=== PATIENT | female | born 1985 | race Caucasian/White ===

== ENCOUNTER 2016-09-16 10:02 | Emergency (ER) | payer OTHER ==
[~2016-09-16] VITALS: Ht 152.4 cm; Wt 55.0 kg
[~2016-09-16 10:02] MED LIST: PRENMIS7 PO; ZOFR4TAB3 SL
[2016-09-16 11:14] VITALS: BP 116/57; PULSE 85; RESP 16; O2SAT 100
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
[2016-09-16 13:37] VITALS: BP 99/51; PULSE 70; RESP 16; O2SAT 100
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
[2016-12-13] MEDS ORDERED: FERRTAB2 PO (16:28)
[2017-02-16] MEDS ORDERED: DICL250 PO (10:27)
== END 2016-09-16 14:15 | disposition home or self-care (01) ==
LOC: NEPC 10:02
DX: Z03.79 Encounter for other suspected maternal and fetal conditions ruled out (principal); O09.892 Supervision of other high risk pregnancies, second trimester; O30.002 Twin pregnancy, unspecified number of placenta and unspecified number of amniotic sacs, second trimester; R51 Headache; Z3A.14 14 weeks gestation of pregnancy; V89.2XXA Person injured in unspecified motor-vehicle accident, traffic, initial encounter
CPT/HCPCS: 84703; 99283

== ENCOUNTER → 2016-09-20 | Outpatient (CLI) | payer MEDICAID, OTHER ==
[~2016-09-20] MED LIST changes: +DICL250 PO; +FERR324T4 PO; +FERRTAB2 PO; +IBUP-232 PO; +OXYC1TAB63 PO; +SENN1TAB PO
== END ==
LOC: HPND 09:20
PROVIDERS: ATTEND Obstetrics & Gynecology Obstetrics
DX: O30.001 Twin pregnancy, unspecified number of placenta and unspecified number of amniotic sacs, first trimester (principal); O43.891 Other placental disorders, first trimester
CPT/HCPCS: 76811; 76812; 76817

== ENCOUNTER → 2016-10-04 | Outpatient (CLI) | payer MEDICAID, OTHER ==
[~2016-10-04] MED LIST changes: -ZOFR4TAB3 SL
== END ==
LOC: HPND 09:00
PROVIDERS: ATTEND Obstetrics & Gynecology
DX: O30.032 Twin pregnancy, monochorionic/diamniotic, second trimester (principal); O43.192 Other malformation of placenta, second trimester; Z3A.18 18 weeks gestation of pregnancy
CPT/HCPCS: 76815; 76817

== ENCOUNTER → 2016-12-28 | Outpatient (CLI) | payer OTHER | LOC: HPND 09:14 | PROVIDERS: ATTEND Obstetrics & Gynecology | DX: O30.032 Twin pregnancy, monochorionic/diamniotic, second trimester (principal) | CPT/HCPCS: 76815; 76820 ==

== ENCOUNTER 2017-01-25 17:19 | Emergency (ER) | payer OTHER ==
[~2017-01-25 17:19] MED LIST changes: -DICL250 PO; -FERR324T4 PO; -IBUP-232 PO; -OXYC1TAB63 PO; -SENN1TAB PO
--- NOTE | 2017-01-25 18:31 | PD ---
HPI Chief Complaint Itching Travel History International Travel<30 Days: No Contact w/Intl Traveler<30Days: No Known Affected Area: No History of Present Illness HPI TIUP at 34w 6d presents with c/o itching in the palms earlier today. Reports taking Benadryl prior to arrival with relief now. Reports itching in the palms 3 days ago. Denies rashes or insect bites. Denies itching in any other areas. Reports good FM x 2. Denies contractions/LOF/VB. Reports being followed by MFM. Para: 3 : 7 History Past Medical History Medical History: Denies Significant Hx Obstetric History Obstetric History FT x 3 Past Surgical History Surgical History: No Previous Surgery Family History Family History: Negative Social History Alcohol Use: No Tobacco Use: No Substance Abuse: No Allergies-Medications (Allergen,Severity, Reaction): Coded Allergies: Cipro (Verified Allergy, Unknown, 12/22/16) Home Meds Active Scripts Multi-Vit/Iron-Folic Yzay-E59-Mnl C (Ferralet)90-1-0.012-120 mg Tab1 Tab PO DAILY #30 BOTTLE Ref 10 Prov:Aminata Alvarez [facility] 12/13/16 W/O Vit A W/ Fe Carbo Pack (Citranatal B-Calm Pack)20-1 & 25 (2) Mg Pack1 Ea PO DIRECTED #6 BLISTER Ref 11 30 day supply. Prov:Dolly Chavez CNM [facility] 08/11/16 W/O Vit A W/ Fe Fumar (Citranatal [place])27-1-260 Mg Cap Sample #2 Prov:Dolly Chavez CNM [facility] 08/11/16 Review of Systems Except as stated in HPI: all other systems reviewed are Neg Physical Exam AFVSS BP 114/66 Narrative GENERAL: Well-nourished, well-developed patient. SKIN: Warm and dry. HEAD: Normocephalic and atraumatic. EYES: No scleral icterus. No injection or drainage. ENT: No nasal drainage noted. Mucous membranes pink. Airway patent. NECK: Supple, trachea midline. No JVD. CARDIOVASCULAR: Regular rate and rhythm without murmurs, gallops, or rubs. RESPIRATORY: Breath sounds equal bilaterally. No accessory muscle use. BREASTS: Bilateral exam showed no masses , no retractions, no nipple discharge. ABDOMEN/GI: Abdomen soft, non-tender, bowel sounds present, no rebound, no guarding Gravid to [-] weeks size Fundal Height: [-] GENITOURINARY: External Genitalia: intact and normal in appearance BUS glands: [-] Cervix: [-] Dilatation: [FT] Effacement: [50] Station: [-3] Presentation: [-] Membranes: [intact or ruptured] Uterine Contractions: [occasional contractions] FHT's: Category: [1] Baseline: [150s/150s] Reactive: [yes] Variability: [moderate] Decels: [none] EXTREMITIES: No cyanosis or edema. BACK: Nontender without obvious deformity. No CVA tenderness. NEUROLOGICAL: Awake and alert. Motor and sensory grossly within normal limits. Five out of 5 muscle strength in all muscle groups. Normal speech. Data Data Vital Signs Reviewed: Yes Labs Laboratory Tests Test 01/25/17 01/25/17 19:00 19:15 Urine Color YELLOW Urine Turbidity CLEAR Urine pH 6.5 Urine Specific [place] 1.025 Urine Protein TRACE mg/dL Urine Glucose (UA) NEG mg/dL Urine Ketones NEG mg/dL Urine Occult Blood NEG Urine Nitrite NEG Urine Bilirubin NEG Urine Urobilinogen 4.0 MG/DL Urine Leukocyte Esterase NEG Urine RBC 1 /hpf Urine WBC 1 /hpf Urine Squamous Epithelial 1 /hpf Cells Urine Mucus FEW /lpf Microscopic Urinalysis Comment CULT NOT INDICATED White Blood Count 7.8 TH/MM3 Red Blood Count 4.20 MIL/MM3 Hemoglobin 10.0 GM/DL Hematocrit 30.9 % Mean Corpuscular Volume 73.7 FL Mean Corpuscular Hemoglobin 23.8 PG Mean Corpuscular Hemoglobin 32.3 % Concent Red Cell Distribution Width 24.5 % Platelet Count 204 TH/MM3 Mean Platelet Volume 8.1 FL Neutrophils (%) (Auto) 72.7 % Lymphocytes (%) (Auto) 18.8 % Monocytes (%) (Auto) 6.4 % Eosinophils (%) (Auto) 1.7 % Basophils (%) (Auto) 0.4 % Neutrophils # (Auto) 5.7 TH/MM3 Lymphocytes # (Auto) 1.5 TH/MM3 Monocytes # (Auto) 0.5 TH/MM3 Eosinophils # (Auto) 0.1 TH/MM3 Basophils # (Auto) 0.0 TH/MM3 CBC Comment DIFF FINAL Differential Comment Sodium Level 138 MEQ/L Potassium Level 3.9 MEQ/L Chloride Level 106 MEQ/L Carbon Dioxide Level 22.0 MEQ/L Anion Gap 10 MEQ/L Blood Urea Nitrogen 6 MG/DL Creatinine 0.57 MG/DL Estimat Glomerular Filtration 125 ML/MIN Rate Random Glucose 92 MG/DL Calcium Level 8.0 MG/DL Total Bilirubin 0.3 MG/DL Aspartate Amino Transf 19 U/L (AST/SGOT) Alanine Aminotransferase 30 U/L (ALT/SGPT) Alkaline Phosphatase 191 U/L Total Protein 6.5 GM/DL Albumin 2.3 GM/DL MDM Interpretation(s) TIUP at 34w 6d with itching and irregular contractions. Continue Benadryl if itching returns. Hydration and OTC therapies d/w patient. Close f/u tomorrow with OB provider. Patient requesting labs. CBC and CMP. Total bile acid levels- fasting lab, patient to f/u with OB provider tomorrow. Diagnosis Diagnosis: Primary Impression: 34 weeks gestation of Additional Impressions: Localized pruritus Irregular uterine contractions Twin in third trimester Disposition: 01 DISCHARGE HOME Condition: Stable Melissa Obrien MD Jan 25, 2017 18:31
[2017-01-25 19:45] LABS: AUTOMATED NEUTROPHIL # 5.7 TH/MM3 (1.8-7.7); BASOPHIL % 0.4 % (0.0-2.0); EOSINOPHIL # 0.1 TH/MM3 (0-0.4); EOSINOPHIL % 1.7 % (0.0-4.0); HEMATOCRIT 30.9 % (35.0-46.0); HEMO FLAGS DIFF FINAL; LYMPH % 18.8 % (9.0-44.0); LYMPHOCYTE # 1.5 TH/MM3 (1.0-4.8); MEAN CELL VOLUME 73.7 FL (80.0-100.0); MEAN CORPUSCULAR HEMOGLOBIN 23.8 PG (27.0-34.0); MEAN CORPUSCULAR HGB CONC 32.3 % (32.0-36.0); MONO % 6.4 % (0.0-8.0); NEUT % 72.7 % (16.0-70.0); PLATELET COUNT 204 TH/MM3 (150-450); RED CELL DISTRIBUTION WIDTH 24.5 % (11.6-17.2); WHITE BLOOD COUNT 7.8 TH/MM3 (4.0-11.0)
[2017-01-25 19:49] LABS: BLOOD, URINE NEG (NEG); COMMENT (UR) CULT NOT INDICATED; CULTURE IF INDICATED CULT NOT INDICATED; GLUCOSE,URINE NEG (NEG); KETONE, URINE NEG (NEG); MUCUS URINE FEW /lpf (OCC); NITRITE,URINE NEG (NEG); PH, URINE 6.5 (5.0-8.5); SQUAMOUS EPITHELIAL CELL URINE 1 /hpf (0-5); URINE COLOR YELLOW (YELLW/STRAW)
[2017-01-25 20:03] LABS: ANION GAP 10 MEQ/L (5-15); AST (GOT) 19 U/L (15-37); BLOOD UREA NITROGEN 6 MG/DL (7-18); CHLORIDE 106 MEQ/L (98-107); GLOMERULAR FILTRATION RATE 125 ML/MIN (>89); POTASSIUM 3.9 MEQ/L (3.5-5.1); SODIUM (NA) 138 MEQ/L (136-145)
[2017-01-25 20:07] LABS: ALKALINE PHOSPHATASE 191 U/L (45-117); ALT (GPT) 30 U/L (10-53); TOTAL BILIRUBIN ADULT 0.3 MG/DL (0.2-1.0)
[2017-02-16] MEDS ORDERED: DICL250 PO (10:27)
== END 2017-01-25 21:16 | disposition home or self-care (01) ==
LOC: HOBED 17:19
DX: O62.2 Other uterine inertia (principal); O30.003 Twin pregnancy, unspecified number of placenta and unspecified number of amniotic sacs, third trimester; L29.8 Other pruritus; Z3A.34 34 weeks gestation of pregnancy
CPT/HCPCS: 80053; 81001; 85025; 99283

== ENCOUNTER 2017-02-02 08:19 | Inpatient (IN) | payer OTHER ==
[~2017-02-02] VITALS: Ht 154.9 cm; Wt 63.5 kg
[2017-02-02] VITALS (64 sets, daily range): BP systolic 91–125; BP diastolic 48–81; PULSE 59–99; RESP 16–18; TEMP 97.6–98.4
[2017-02-02] MEDS ORDERED: ONDANSETRON HCL 4 MG/2 ML VIAL IV PRN (08:30)
[2017-02-02] MEDS ORDERED: SODIUM CHLORID 0.9% 500 ML INJ 500 ML IV PRN (08:30)
[2017-02-02] MEDS ORDERED: LIDOCAINE HCL 1% 50 ML VIAL INFIL PRN (08:30)
[2017-02-02] MEDS ORDERED: MINERAL OIL 10 ML VIAL TOPICAL PRN (08:30)
[2017-02-02] MEDS ORDERED: LIDOCAINE HCL 1% 50 ML VIAL I-DERMAL PRN (08:30)
[2017-02-02] MEDS ORDERED: OXYTOCIN 30 UNITS-500ML PREMIX 500 ML IV ONE (08:30)
[2017-02-02] MEDS ORDERED: CITRIC ACID-SODIUM CITRATE LIQ 30 ML UDC PO SCH (08:30)
[2017-02-02] MEDS ORDERED: SODIUM CHLOR 0.9% 1000 ML INJ 1,000 ML IV PRN (08:49)
[2017-02-02] MEDS ORDERED: LACTATED RINGER'S 1000 ML INJ 1,000 ML IV PRN (09:00)
--- NOTE | 2017-02-02 09:08 | HHI.HP ---
HPI Chief Complaint induction of labor, mono/di twin gestation Date Seen: Feb 02, 2017 Time Seen: 09:04 (Ivone Galeano MD R1) Travel History International Travel<30 Days: No Contact w/Intl Traveler<30Days: No Known Affected Area: No (Ivone Galeano MD R1) History of Present Illness HPI Patient is a 31 year old at 36 and 0/7 weeks of monochorionic/ diamniotic twin gestation by first trimester ultrasound, MARITZA 03/02/2017, who presents to L&D for induction of labor. She states she was feeling contractions yesterday and has pelvic pressure. She denies leakage of fluid and vaginal bleeding. She feels babies moving regularly. She denies MCMAHON/N/V/D/fever/sick contacts/SOB/calf pain/dizziness/seeing spots. OB care is with [facility]. LITZY 2016. Patient is noted to have a subchorionic bleed at approximately 11 weeks gestation, at which time she was referred to [facility] [place]. She has been getting twice weekly assessments in the third trimester. [facility] [place] has recommended delivery at 36 weeks due to IUGR in Twin A per [facility] documentation. records reviewed, course has been unremarkable side from above. labs notable for HIV negative, TSH within normal limits, blood type A positive, normal H/H, rubella not immune, negative GC/Chlamydia. She had an US 01/31/2017, notable for fetus A cephalic, JED 5.5 cm, EFW 2010 g, IUGR at <3%ile. Fetus B cephalic, JED 5.5 cm, EFW 2215 g, AGA. Grade 12 placenta, posterior. Para: 3 : 7 Last Menstrual Period: Jun 04, 2016 (Ivone Galeano MD R1) History Past Medical History Medical History: Denies Significant Hx (Ivone Galeano MD R1) Obstetric History Obstetric History 3 term pregnancies, 2003 was of 7lb female at term, 2007 was of 6rk81dn male at term, 2008 was of 7lb5oz male at term Induced AB 2 SAB 1 (Ivone Galeano MD R1) Past Surgical History Surgical History: No Previous Surgery (Ivone Galeano MD R1) Family History Family History: Negative (Ivone Galeano MD R1) Social History Alcohol Use: No Tobacco Use: No Substance Abuse: No (Ivone Galeano MD R1) Allergies-Medications (Allergen,Severity, Reaction): Coded Allergies: Cipro (Verified Allergy, Unknown, 01/30/17) Home Meds Active Scripts Ferrous Sulfate DR 324 Mg [id number] Mg PO TID #90 TAB Ref 0 Prov:Gogo Enciso MD R2 02/05/17 Sennosides-Docusate Sodium (Senna Plus 8.6-50 mg)1 Tab Tab2 Tab PO Q12H PRN ( CONSTIPATION) #60 TAB Prov:Gogo Enciso MD R2 02/05/17 Oxycodone-Acetaminophen 5-325 mg Tab1 Tab PO Q6HR PRN (pain) #20 TAB Prov:Gogo Enciso MD R2 02/05/17 Ibuprofen 600 Mg [id number] Mg PO Q6H PRN ( CRAMPING) #30 TAB Prov:Gogo Enciso MD R2 02/05/17 Multi-Vit/Iron-Folic Ndst-Z11-Mol C (Ferralet)90-1-0.012-120 mg Tab1 Tab PO DAILY #30 BOTTLE Ref 10 Prov:Aminata Alvarez 12/13/16 W/O Vit A W/ Fe Carbo Pack (Citranatal B-Calm Pack)20-1 & 25 (2) Mg Pack1 Ea PO DIRECTED #6 BLISTER Ref 11 30 day supply. Prov:Dolly Chavez CNM [facility] 08/11/16 Discontinued Scripts W/O Vit A W/ Fe Fumar (Citranatal [place])27-1-260 Mg Cap Sample #2 Prov:Dolly Chavez CNM [facility] 08/11/16 Review of Systems Except as stated in HPI: all other systems reviewed are Neg (Ivone Galeano MD R1) Physical Exam Vital Signs Date Time Temp Pulse Resp B/P Pulse Ox O2 Delivery O2 Flow Rate FiO2 02/02/17 08:52 72 118/68 Narrative GENERAL: Well-nourished, well-developed female in no apparent distress. SKIN: Warm and dry. No rashes. HEAD: Normocephalic and atraumatic. EYES: No scleral icterus. No injection or drainage. ENT: No nasal drainage noted. Mucous membranes pink. Airway patent. NECK: Supple, trachea midline. No JVD. CARDIOVASCULAR: Regular rate and rhythm without murmurs, gallops, or rubs. RESPIRATORY: Breath sounds equal bilaterally. No accessory muscle use. ABDOMEN/GI: Abdomen soft, non-tender, bowel sounds present, no rebound, no guarding. Gravid GENITOURINARY: External Genitalia: intact and normal in appearance Cervix: Soft, posterior, 3/50%/-2 Presentation: Vertex 2 Membranes: Intact Uterine Contractions: 1 over initial FHT's: Twin A, red on tracing: Category: 1 Baseline: 140 Reactive: y to 150 Variability: mod Decels: Absent Twin B, blue on tracing: Category: 1 Baseline: 140 Reactive: y to 150 Variability: mod Decels: Absent EXTREMITIES: No cyanosis or edema. BACK: Nontender without obvious deformity. No CVA tenderness. NEUROLOGICAL: Awake and alert. Motor and sensory grossly within normal limits. Five out of 5 muscle strength in all muscle groups. Normal speech. (Ivone Galeano MD R1) Data Data Vital Signs Reviewed: Yes (BP 118/68, P 72, RR 18) Orders Admit To Inpatient (02/02/17 ) Code Status (02/02/17 08:29) Vital Signs (Adult) .Per protocol (02/02/17 08:29) Activity Oob Ad Traci (02/02/17 08:29) Heart (02/02/17 08:29) Amnioinfusion (02/02/17 08:29) Urinary Catheter Management .ONCE (02/02/17 08:29) Diet Liquid (02/02/17 Breakfast) Lactated Ringer's 1000 Ml Inj (Lr 1000 M (02/02/17 08:29) Lactated Ringer's 1000 Ml Inj (Lr 1000 M (02/02/17 09:00) Sodium Chlorid 0.9% 500 Ml Inj (Ns 500 M (02/02/17 08:30) Sodium Chlor 0.9% 1000 Ml Inj (Ns 1000 M (02/02/17 08:49) Lidocaine 1% Inj (50 Ml) (Xylocaine 1% I (02/02/17 08:30) Citric Acid-Sodium Citrate Liq (Bicitra (02/02/17 08:30) Ondansetron Inj (Zofran Inj) (02/02/17 08:30) Fentanyl Inj (Fentanyl Inj) (02/02/17 08:30) Fentanyl Inj (Fentanyl Inj) (02/02/17 08:30) Complete Blood Count With Diff (02/02/17 08:29) Hold Clot (02/02/17 08:29) Abo/Rh Blood Type (02/02/17 08:29) Urinalysis - C+S If Indicated (02/02/17 08:29) Resp Oxygen Non Rebreathe Mask (02/02/17 ) ^ Epidural / Intrathecal Infus (02/02/17 08:29) Oxytocin 30 Units-500ml Premix (Pitocin (02/02/17 08:30) Lidocaine 1% Inj (50 Ml) (Xylocaine 1% I (02/02/17 08:30) Light Mineral Oil (Muri-Lube Oil) (02/02/17 08:30) Inpatient Certification (02/02/17 ) Specimen To Be Collected PRN (02/02/17 08:29) (Ivone Galeano MD R1) Assessment/Plan Problem List: (1) Twin in third trimester (2) IUGR (intrauterine growth retardation) of Assessment and Plan 31 year old at 36 and 0/7 weeks of monochorionic/diamniotic twin gestation admitted for IOL. Intrauterine with [place]/Di twin gestation: Fetus A: category 1 tracing Fetus B: category 1 tracing Cervix: 3/40%/-2/posterior/soft, Wilkinson score is 8 Will induce with Pitocin at 2/2/30 per protocol Patient desires vaginal delivery Intact membranes Epidural for pain CBC, UA IV fluids Monitor heart tones Routine care Per [facility], steroids not indicated Both infants female, names of the Rosa and Mohinder GBS positive: GBS culture was collected on 01/26/17 Start IV penicillin per protocol due to gestational age Patient was seen and discussed with Dr. Rojas PGY2 and Dr. Andres, attending Discharge Planning If vaginal delivery, 12 days after delivery. If section, 23 days after delivery (Ivone Galeano MD R1) Collaborating MD Comments Patient seen and examined. Reviewed plan of care and agree with management. ( Mandi Andres MD) Ivone Galeano MD R1 Feb 02, 2017 09:08 Mandi Andres MD Feb 07, 2017 08:27
[2017-02-02] MEDS ORDERED: OXYTOCIN 30 UNITS-500ML PREMIX 500 ML IV SCH ×2 (09:15→10:15)
[2017-02-02 09:34] LABS: HEMATOCRIT 34.2 % (35.0-46.0); MEAN CELL VOLUME 74.8 FL (80.0-100.0); MEAN CORPUSCULAR HEMOGLOBIN 23.4 PG (27.0-34.0); MEAN CORPUSCULAR HGB CONC 31.3 % (32.0-36.0); PLATELET COUNT 222 TH/MM3 (150-450); RED BLOOD COUNT 4.57 MIL/MM3 (4.00-5.30); RED CELL DISTRIBUTION WIDTH 24.2 % (11.6-17.2); WHITE BLOOD COUNT 8.9 TH/MM3 (4.0-11.0)
[2017-02-02 09:41] LABS: HEMO FLAGS AUTO DIFF
[2017-02-02] MEDS ORDERED: PENICILLIN G POTASSIUM INJ 5,000,000 UNITS in SODIUM CHLORIDE 0.9% INJ 100 ML IV ONE (10:00)
[2017-02-02 10:12] LABS: EOSINOPHILS 1 % (0-4); NEUTROPHIL # MANUAL DIFF 5.9 TH/MM3 (1.8-7.7); POLYS (SEG NEUTROPHILS) 66 % (16-70); WBC DIFF SAMPLE 100
[2017-02-02 10:13] LABS: PLATELET ESTIMATE SMEAR NORMAL (NORMAL); PLATELET MORPHOLOGY NORMAL (NORMAL); SCAN/DIFF FINAL DIFF MANUAL
[2017-02-02 10:14] LABS: OVALOCYTES 1+ (NORMAL)
[2017-02-02] MEDS: LACTATED RINGER'S 1000 ML INJ 1,000 ML IV SCH ×3 (10:16→21:01)
--- NOTE | 2017-02-02 10:29 | PD.LABORPN ---
Subjective Subjective Changing shifts Dr. Del Angel coming on duty. Chart reviewed This patient is a 31-year-old 7 para 3 at 36 weeks gestation with mono chorionic diamniotic twin gestation, with the diagnosis of IUGR she is admitted for induction of labor on the recommendation of maternal medicine [facility] Ultrasound done February 01, 2080 is vertex at approximately weight 2010 g less than the 3% Twin B also vertex 20/2/15 grams AGA Patient has no complaints at this point she is GBS positive Objective Vital Signs Vital Signs Date Time Temp Pulse Resp B/P Pulse Ox O2 Delivery O2 Flow Rate FiO2 02/02/17 09:30 98.3 02/02/17 09:00 18 02/02/17 08:52 72 118/68 Objective Pelvic Exam: Cervix: [-] Midline soft Dilatation: [-] 3 cm Effacement: [-] 50% effaced Station: [-] -2 station Presentation: [-] Vertex/vertex Membranes: [intact Uterine Contractions: [-] Occasional FHT's: Category: [-] / Baseline: [-]140/140 Reactive: [-] +/+ Variability: [-] Moderate/moderate Decels: [-] 0 Assessment/Plan Problem List: (1) Twin in third trimester (2) IUGR (intrauterine growth retardation) of Assessment and Plan Assessment: Intrauterine at 36 weeks gestation [place] chorionic diamniotic twin gestation IUGR in the first twin at less than the 3rd percentile Vertex vertex presentation Group B strep positive A positive blood type Stable blood pressure Plan; External monitoring Pitocin augmentation of labor Anticipate vaginal delivery The procedure of vaginal delivery was fully discussed with the patient and the baby's father she understands that delivery will be done in the operating room. She understands that we will attempt a vaginal delivery as both babies are vertex vertex and that is her request. She also understands that if there are any problems with either baby tolerating the labor process that a section will be recommended. She also understands if the second twin has any difficulty during the delivery process and the operating room that although the first baby came out vaginally the second baby may require a section Procedure indications and complications discussed with the patient She does desire an epidural Penicillin coverage for group B strep Pitocin at 1 milliunit every 30 minutes until patient den every 2-3 minutes Complications of Pitocin also discussed Robina Luna MD Feb 02, 2017 10:29
[2017-02-02] MEDS ORDERED: fentaNYL 2MCG-BUPIV 0.125% INJ 100 ML ONE (13:30)
[2017-02-02] MEDS ORDERED: ePHEDrine/NS 25 MG/5 ML SYR ONE (13:30)
--- NOTE | 2017-02-02 13:39 | PD.LABORPN ---
Subjective Subjective Patient starting to feel her contractions has decided she wants an epidural Objective Vital Signs Vital Signs Date Time Temp Pulse Resp B/P Pulse Ox O2 Delivery O2 Flow Rate FiO2 02/02/17 13:00 88 113/68 02/02/17 12:33 17 02/02/17 12:30 91 113/70 02/02/17 12:15 17 02/02/17 12:01 86 98/64 02/02/17 11:35 17 02/02/17 11:30 80 110/74 02/02/17 11:15 18 02/02/17 11:01 75 119/70 02/02/17 10:35 83 112/61 02/02/17 09:30 98.3 02/02/17 09:00 18 02/02/17 08:52 72 118/68 Objective Pelvic Exam: Cervix: [-] Midline Dilatation: [-] 3-4 cm Effacement: [-] 50-75% effaced Station: [-] -2-3 Presentation: [-] First twin is vertex Membranes: [intact Uterine Contractions: [-] Every 3 minutes Pitocin at 4 milliunits FHT's: Both twins are category 1 tracing Assessment/Plan Problem List: (1) Twin in third trimester (2) IUGR (intrauterine growth retardation) of Assessment and Plan Twin gestation at 36 weeks Induction of labor for twin A's IUGR Plan epidural Robina Luna MD Feb 02, 2017 13:39
[2017-02-02 13:42] LABS: BLOOD, URINE NEG (NEG); COMMENT (UR) CULT NOT INDICATED; CULTURE IF INDICATED CULT NOT INDICATED; GLUCOSE,URINE NEG (NEG); KETONE, URINE NEG (NEG); NITRITE,URINE NEG (NEG); PH, URINE 6.5 (5.0-8.5); SQUAMOUS EPITHELIAL CELL URINE <1 /hpf (0-5); URINE COLOR LIGHT-YELLOW (YELLW/STRAW)
[2017-02-02] MEDS: PENICILLIN G POTASSIUM INJ 2,500,000 UNITS in SODIUM CHLORIDE 0.9% INJ 100 ML IV SCH ×3 (14:40→22:19)
[2017-02-02] MEDS ORDERED: ePHEDrine/NS 25 MG/5 ML SYR IV PRN (15:00)
[2017-02-02] MEDS ORDERED: fentaNYL 2MCG-BUPIV 0.125% 100 ML EPIDURAL SCH (15:00)
[2017-02-02] MEDS ORDERED: NO SYSTEM NARCOTICS PRN (15:00)
[2017-02-02] MEDS ORDERED: DO NOT ADMINISTER ANTICOAGULANTS PRN (15:00)
--- NOTE | 2017-02-02 21:18 | PD.LABORPN ---
Subjective Subjective Patient is comfortable Objective Vital Signs Vital Signs Date Time Temp Pulse Resp B/P Pulse Ox O2 Delivery O2 Flow Rate FiO2 02/02/17 21:06 18 02/02/17 21:00 18 02/02/17 21:00 83 107/66 02/02/17 20:45 18 02/02/17 20:30 75 02/02/17 20:30 96/61 02/02/17 20:13 18 02/02/17 20:00 68 112/71 02/02/17 19:35 97.8 02/02/17 19:30 60 118/68 02/02/17 19:15 18 02/02/17 19:00 59 113/70 02/02/17 18:30 62 108/68 02/02/17 18:15 97.6 17 02/02/17 18:01 71 103/67 02/02/17 17:46 63 115/71 02/02/17 17:30 67 110/81 02/02/17 17:08 17 02/02/17 17:00 69 105/68 02/02/17 16:45 60 114/65 02/02/17 16:15 65 105/78 02/02/17 16:15 18 02/02/17 16:00 62 110/70 02/02/17 15:45 17 02/02/17 15:30 109/64 02/02/17 15:30 64 02/02/17 15:16 73 105/61 02/02/17 15:00 70 111/66 02/02/17 14:46 59 115/65 02/02/17 14:45 97.8 02/02/17 14:45 18 02/02/17 14:41 61 124/60 02/02/17 14:35 71 111/71 02/02/17 14:30 69 107/62 02/02/17 14:27 75 97/59 02/02/17 14:21 73 115/48 02/02/17 14:15 85 92/51 02/02/17 14:10 81 111/71 02/02/17 14:05 78 108/66 02/02/17 14:00 80 18 101/50 02/02/17 13:57 80 110/61 02/02/17 13:56 99 91/50 02/02/17 13:55 83 02/02/17 13:50 83 125/76 02/02/17 13:50 89 02/02/17 13:45 73 02/02/17 13:45 80 116/63 02/02/17 13:44 78 112/62 02/02/17 13:30 86 99/61 02/02/17 13:30 18 Objective Pelvic Exam: Cervix: [-]midline Dilatation: [-] 5 Effacement: [-] 75% Station: [-] -2 Presentation: [-]vtx/vtx Membranes: ruptured]arom fluid is clear Uterine Contractions: [-]q 3-4 pitocin at 10 FHT's: Category: [-] 08/21 Baseline: [-] 130 Reactive: [-]+ Variability: [-] moderate Decels: [-] Assessment/Plan Problem List: (1) Twin in third trimester (2) IUGR (intrauterine growth retardation) of Assessment and Plan arom clear anticipate Robina Luna MD Feb 02, 2017 21:18
[2017-02-03] VITALS (23 sets, daily range): BP systolic 85–118; BP diastolic 50–78; PULSE 67–98; RESP 16–20; TEMP 97.8–98.4; O2SAT 99–100
[2017-02-03] MEDS ORDERED: LIDOCAINE HCL 1% 50 ML VIAL ONE (02:54)
[2017-02-03] MEDS ORDERED: OXYTOCIN 10 UNIT/ML AMP ONE (04:02)
[2017-02-03] MEDS ORDERED: ceFAZolin INJ 1,000 MG VIAL ONE (04:24)
[2017-02-03 04:31] LABS: BLOOD GAS BASE EXCESS -7.2 mmol/L (-2-2); BLOOD GAS O2 HGB SATURATION 36 % (90-100); CORD BLOOD GAS HCO3 19 mmol/L (21-29); CORD BLOOD GAS PCO2 46 mmHG (34-78); CORD BLOOD GAS PH 7.24 (7.14-7.42); CORD BLOOD GAS PO2 21 mmHG (3.0-40.0); DRAW SITE CORD BLOOD; STAT YES
--- NOTE | 2017-02-03 04:44 | PD.OB.DELI ---
Delivery Date: Feb 03, 2017 Anesthesia: Epidural Episiotomy: None Vaginal Delivery: Normal (Twin A, Twin B delivered via ) Presentation: Occiput anterior Nuchal Cord: x1 Delayed cord clamping (45 sec): Yes : Female (Twin A) One Minute : 8 Five Minute : 9 Weight: 2150g Placenta: Manual removal (During of Twin B, manual removal, monochorionic diamniotic twin gestation), 3 vessel cord Laceration: No lacerations Additional Information Delivered atraumatically over intact perineum. EBL 250cc. Supervised by Lucinda Angelo MD R2 Feb 03, 2017 04:44
[2017-02-03] MEDS ORDERED: oxyCODONE/ACETAMINOPHEN 5 MG/325 MG TAB PO PRN (04:45)
[2017-02-03] MEDS ORDERED: ZOLPIDEM TARTRATE 5 MG TAB PO PRN (04:45)
[2017-02-03] MEDS ORDERED: SODIUM CHLORIDE 0.9% FLUSH 10 ML FLUSH IV FLUSH PRN (04:45)
[2017-02-03] MEDS ORDERED: KETOROLAC TROMETHAMINE 60 MG/2 ML (IM) VIAL IM PRN (04:45)
[2017-02-03] MEDS ORDERED: OXYTOCIN 30 UNITS-500ML PREMIX 500 ML IV ONE (04:45)
[2017-02-03] MEDS ORDERED: ACETAMINOPHEN 325 MG TAB PO PRN (04:45)
[2017-02-03] MEDS ORDERED: ONDANSETRON HCL 4 MG/2 ML VIAL IV PUSH PRN (04:45)
[2017-02-03] MEDS ORDERED: ACETAMINOPHEN 1000 MG/100 ML VIAL IV ONE (04:54)
--- NOTE | 2017-02-03 05:01 | PD.OP ---
Operative Report Date of Surgery: Feb 03, 2017 Preoperative Diagnosis: 36 weeks 6 days twin gestation monochorionic diamniotic IUGR Postoperative Diagnosis: Same with asynclitic vertex on twin B Failed vacuum Procedure: Primary low segment transverse section Anesthesia: Epidural Surgeon: Robina Del Angel One Piece Expansion Maker Hand(s): Dr. Jose gupta Resident Surgeon: dr Rojas Operation and Findings: This 31-year-old 7 para 5 with monoamniotic dichorionic twin gestation being induced for IUGR .she progressed to completely dilated completely effaced with the twin a vertex at a 0 station. she was taken back to the operating room where under a double set up she delivered twin A at 3:10 female weight 20/1/50 grams with Apgars of 8 at 1 minute and 9 at 5 minutes over an intact perineum. Baby A's cord was then clamped, we awaited resumption of the contractions. she was augmented with Pitocin starting at 2 milliunits eventually increased to 6 milliunits contractions far and in between twin B was at a -3 station with membranes bulging she pushed the baby down to a -2 to -1 position. Membranes were needled clear fluid, however upon rupture of the membranes examination revealed the baby's vertex to be asynclitic. attempts were made to place a flat Kiwi vacuum on the vertex however due to swelling within the vagina and swelling of the cervix we were never able to get the vacuum placed adequately. A second opinion was obtained from Dr. Jose gupta he examined the patient and agreed with the Mal presentation. An attempt was made to place a flexible mushroom vacuum at the flexion point however due to the position and swelling with the Cord of the first baby coming through the os it was difficult to find adequate placement and the vacuum was abandoned. Dr. gupta agreed that due to the asynclitic nature of the vertex of twin B that vaginal delivery could not be accomplished heart rates were stable in the 130s 140s with variable decelerations it was then decided to proceed with C- section for the second twin. Anesthesiologist:: ( Gonzalez Manzo) Estimated blood loss: (700 cc ) Sponge and instrument count: (Correct ) Drains: (None ) Complications: (None ) Indications for procedure: (Mal presentation of twin B ) Findings: (Twin B born at 4:08 AM female weight 2090 g with Apgars of 1 at 8 minutes 9 at 5 minutes cord pH of 7.24 ) Timeout done After delivery of twin A with subsequent failure of the vacuum due to Mal presentation twin B was converted to a A [place] catheter was inserted under sterile conditions and draining adequate clear urine. Intermittent compression hoses were placed and functioning. Bovie pad was placed and grounded. The abdomen was shaved prepped and draped in the usual sterile fashion. A transverse Pfannenstiel incision was made carried down through the skin subcutaneous tissue. The fascia was opened transversely. from the muscles in the midline. The rectus muscles were . Peritoneal cavity opened and the abdominal cavity entered. The bladder flap was taken down transversely and a low segment transverse incision made into the lower uterine segment. The fluid was (clear ). The infant was vertex/asynclitic nuchal cord 1. The vertex was delivered nose and mouth suctioned well the remainder of the body was then delivered. Cord doubly clamped and cut and the handed over to the awaiting nursing staff. A portion of cord was obtained for cord pH The placenta was manually removed delivered intact with fundal massage. Sent to pathology The uterus was then exteriorized cleaned of excessive blood and debris. The incision was then closed with 0 chromic in a continuous interlocking stitch. The stitch line was imbricated also using 0 chromic. No active bleeding. Tubes and ovaries were inspected and found to be normal. The abdominal cavity was then irrigated. The uterus placed back into the abdomen. Paracolic gutters cleaned of excessive blood and debris. Interceed was then placed over the incision and the anterior surface of the uterus in an inverted T. The peritoneum was then closed with 2-0 Vicryl. The muscles reapproximated. Inspection of the muscle bed demonstrated no bleeding. Intercede placed over the muscle at the midline. The fascia was then closed with 0 Vicryl in a continuous stitch. The subcutaneous tissue was irrigated bleeders controlled with Bovie. Luis Fernando's fascia closed with 2-0 Vicryl. The skin was closed using ( rebeca). The uterus was massaged clearing blood and clots. The patient was cleaned. Pressure dressing and abdominal binder placed. Patient then transferred to the recovery room in stable condition, where her vital signs are ( stable). Urine is clear and adequate. Baby transferred to the nursery in stable condition. Robina Luna MD Feb 03, 2017 05:01
[2017-02-03] MEDS ORDERED: ONDANSETRON HCL 4 MG/2 ML VIAL ONE (05:02)
[2017-02-03] MEDS ORDERED: MORPHINE SULFATE PF 5 MG/10 ML VIAL ONE (05:02)
[2017-02-03] MEDS ORDERED: EPIDURAL-DIPHENHYDRAMINE HCL 50 MG CAP PO PRN (07:00)
[2017-02-03] MEDS ORDERED: EPIDURAL-NO SYSTEMIC NARCOTICS PRN (07:00)
[2017-02-03] MEDS ORDERED: EPIDURAL-DO NOT ADMINISTER ANTICOAGULANTS PRN (07:00)
[2017-02-03] MEDS ORDERED: EPIDURAL-DIPHENHYDRAMINE HCL 50 MG/ML VIAL IV PUSH PRN (07:00)
[2017-02-03] MEDS ORDERED: EPIDURAL-NALOXONE HCL 0.4 MG/ML AMP IV PRN (07:00)
[2017-02-03] MEDS ORDERED: SODIUM CHLORIDE 0.9% FLUSH 10 ML FLUSH IV FLUSH SCH (09:00)
[2017-02-03] MEDS ORDERED: PROCHLORPERAZINE INJ 10 MG/2 ML VIAL IM ONE (09:00)
[2017-02-03] MEDS ORDERED: LACTATED RINGER'S 1000 ML INJ 1,000 ML IV SCH (09:40)
[2017-02-03 11:52] LABS: BASOPHIL # 0.1 TH/MM3 (0-0.2); BASOPHIL % 0.4 % (0.0-2.0); HEMATOCRIT 28.1 % (35.0-46.0); HEMO FLAGS DIFF FINAL; LYMPH % 4.4 % (9.0-44.0); LYMPHOCYTE # 0.9 TH/MM3 (1.0-4.8); MEAN CELL VOLUME 75.1 FL (80.0-100.0); MEAN CORPUSCULAR HEMOGLOBIN 24.1 PG (27.0-34.0); MEAN CORPUSCULAR HGB CONC 32.1 % (32.0-36.0); MONO % 3.9 % (0.0-8.0); NEUT % 91.3 % (16.0-70.0); PLATELET COUNT 188 TH/MM3 (150-450); RED BLOOD COUNT 3.74 MIL/MM3 (4.00-5.30); RED CELL DISTRIBUTION WIDTH 24.1 % (11.6-17.2); WHITE BLOOD COUNT 19.7 TH/MM3 (4.0-11.0)
[2017-02-03] MEDS ORDERED: ACETAMINOPHEN 1000 MG/100 ML VIAL IV SCH (13:00)
[2017-02-03] MEDS ORDERED: OXYTOCIN 30 UNITS-500ML PREMIX 500 ML IV PRN (14:45)
[2017-02-03] MEDS: IBUPROFEN 600 MG TAB PO PRN (22:54)
[2017-02-03] MEDS: DOCUSATE SODIUM 50 MG/SENNA 8.6 MG TAB PO PRN (22:55)
[2017-02-04 06:56] LABS: AUTOMATED NEUTROPHIL # 11.1 TH/MM3 (1.8-7.7); BASOPHIL % 0.2 % (0.0-2.0); EOSINOPHIL # 0.1 TH/MM3 (0-0.4); LYMPH % 13.4 % (9.0-44.0); LYMPHOCYTE # 1.9 TH/MM3 (1.0-4.8); MEAN CELL VOLUME 75.6 FL (80.0-100.0); MEAN CORPUSCULAR HEMOGLOBIN 23.8 PG (27.0-34.0); MEAN CORPUSCULAR HGB CONC 31.5 % (32.0-36.0); MONO % 5.8 % (0.0-8.0); NEUT % 79.6 % (16.0-70.0); PLATELET COUNT 179 TH/MM3 (150-450); RED BLOOD COUNT 2.94 MIL/MM3 (4.00-5.30); RED CELL DISTRIBUTION WIDTH 24.5 % (11.6-17.2); WHITE BLOOD COUNT 13.9 TH/MM3 (4.0-11.0)
[2017-02-04 07:03] LABS: HEMO FLAGS AUTO DIFF
[2017-02-04 07:05] LABS: HEMATOCRIT 22.2 % (35.0-46.0)
--- NOTE | 2017-02-04 07:28 | HHI.OB ---
Subjective Remarks 31-year-old /postoperative day #1 s/p and for twin gestation. Vitals are stable, patient remains afebrile. She is tired and sore this morning. 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 Objective Vitals/I&O Vital Signs Date Time Temp Pulse Resp B/P Pulse Ox O2 Delivery O2 Flow Rate FiO2 02/03/17 18:39 16 02/03/17 16:49 97.8 84 16 102/60 02/03/17 15:16 16 02/03/17 14:30 18 02/03/17 13:30 16 02/03/17 12:48 98.3 77 16 115/78 02/03/17 11:45 18 02/03/17 10:45 16 02/03/17 09:24 16 02/03/17 08:30 97.8 72 17 115/64 Result Diagram: 02/04/17 0618 Objective Remarks GENERAL: Well-nourished, well-developed patient. CARDIOVASCULAR: Regular rate and rhythm without murmurs, gallops, or rubs. RESPIRATORY: Breath sounds equal bilaterally. No accessory muscle use. ABDOMEN/GI: Abdomen soft, non-tender, bowel sounds present. Incision: Clean, dry and intact. Fundus: Firm, non-tender at umbilicus. GENITOURINARY: Light to moderate bleeding. EXTREMITIES: No cyanosis or edema, non-tender, without signs of DVT. Medications and IVs Current Medications Medications (Trade) Dose Ordered Sig/Patrick Route Start Time Stop Time Status Last Admin (NS Flush) 2 ml BID IV FLUSH 02/03/17 09:00 (NS Flush) 2 ml UNSCH PRN IV FLUSH 02/03/17 04:45 (Mylicon Chew) 80 mg QID PRN PO 02/03/17 04:45 (Tylenol) 650 mg Q6H PRN PO 02/03/17 04:45 (Motrin) 600 mg Q6H PRN PO 02/03/17 04:45 02/03/17 22:54 (Percocet 5-325 Mg) 1 tab Q4H PRN PO 02/03/17 04:45 (Percocet 5-325 Mg) 2 tab Q4H PRN PO 02/03/17 04:45 (Becky-Colace) 2 tab Q12H PRN PO 02/03/17 04:45 02/03/17 22:55 (Ambien) 5 mg HS PRN PO 02/03/17 04:45 (M-M-R Ii Inj) 0.5 ml ONCE ONCE SQ 02/04/17 16:00 02/04/17 16:01 (Boostrix Inj) 0.5 ml ONCE ONCE IM 02/04/17 16:00 02/04/17 16:01 (Zofran Inj) 4 mg Q6H PRN IV PUSH 02/03/17 04:45 02/03/17 07:28 Assessment/Plan Problem List: (1) Twin, delivered by (2) (spontaneous vaginal delivery) Assessment and Plan 31 y/o female who is PPD/POD# 1 s/p CXN and of twin gestation. -Continue routine care. -Percocet and Motrin PRN pain. -Hgb trending down from 9.0 to 7.0 today. Patient denies consent of blood transfusion if necessary for mandaeism purposes. Will give Venofer 200mg IV today. Discharge home on ferrous sulfate PO TID. -Encouraged OOB. Advised pelvic rest for 6 wks. Will need rebeca removed on POD #3. Will need a f/u appt. in 1 wk for incision check. -Re: ctrl, she would like to consider her options. -Anticipate discharge home in [address] MD R2 Feb 04, 2017 07:28
[2017-02-04] MEDS ORDERED: KETOROLAC TROMETHAMINE 60 MG/2 ML (IM) VIAL IM PRN ×2 (07:45)
[2017-02-04] MEDS ORDERED: IRON SUCROSE INJ 200 MG in SODIUM CHLORIDE 0.9% INJ 100 ML IV ONE (09:30)
[2017-02-04 10:07] LABS: SCAN/DIFF AUTO DIFF CONFIRMED
[2017-02-04] MEDS: SIMETHICONE 80 MG CHEWABLE TAB PO PRN ×2 (15:47→22:32)
[2017-02-04] MEDS: DOCUSATE SODIUM 50 MG/SENNA 8.6 MG TAB PO PRN (15:47)
[2017-02-04] MEDS ORDERED: MEASLES, MUMPS, RUBELLA VACCINE 0.5 ML VIAL SQ ONE (16:00)
[2017-02-04] MEDS ORDERED: DIPHTH/TETANUS/ACEL PERTUSSIS (BOOSTER) 0.5 ML VIAL/PFS IM ONE (16:00)
[2017-02-04] MEDS: IBUPROFEN 600 MG TAB PO PRN ×2 (16:11→22:34)
[2017-02-04] MEDS: oxyCODONE/ACETAMINOPHEN 5 MG/325 MG TAB PO PRN ×2 (16:12→22:34)
[2017-02-05] MEDS: SIMETHICONE 80 MG CHEWABLE TAB PO PRN ×2 (05:55→20:34)
[2017-02-05] MEDS: IBUPROFEN 600 MG TAB PO PRN ×3 (05:56→20:34)
[2017-02-05] MEDS: oxyCODONE/ACETAMINOPHEN 5 MG/325 MG TAB PO PRN ×3 (05:56→20:34)
[2017-02-05 08:00] VITALS: BP 112/68; PULSE 80; RESP 20; TEMP 97.8
--- NOTE | 2017-02-05 08:32 | HHI.OB ---
Subjective Post Operative Day: 2 Remarks 31 year old female s/p and for twin gestation at 36/1 wks gestation, PPD/POD 2. AFVSS, no tachycardia. Patient reports she is feeling well but is tired and having upper back spasms. Bleeding is decreasing and pain is well-controlled. She is bonding well with baby. Ambulating without difficulties. She is tolerating a diet without nausea or vomiting. She has not passed gas. Denies chest pain, dysuria, shortness of breath, or calf pain. ( Gogo Enciso MD R2) Remarks Patient seen and evaluated with resident under direct supervision, agree with assessment and plan. (Alexx Aguiar MD) Objective Result Diagram: 02/04/17617 Objective Remarks GENERAL: Well-nourished, well-developed patient. CARDIOVASCULAR: Regular rate and rhythm without murmurs, gallops, or rubs. RESPIRATORY: Breath sounds equal bilaterally. No accessory muscle use. ABDOMEN/GI: Abdomen soft, non-tender. Incision: Clean, dry and intact. Stables present Fundus: Firm, non-tender at umbilicus. GENITOURINARY: Light to moderate bleeding. EXTREMITIES: No cyanosis, non-tender, without signs of DVT. 1+ pitting edema up to mid brown bilaterally Medications and IVs Current Medications Medications (Trade) Dose Ordered Sig/Patrick Route Start Time Stop Time Status Last Admin (NS Flush) 2 ml BID IV FLUSH 02/03/17 09:00 (NS Flush) 2 ml UNSCH PRN IV FLUSH 02/03/17 04:45 (Mylicon Chew) 80 mg QID PRN PO 02/03/17 04:45 02/05/17 05:55 (Tylenol) 650 mg Q6H PRN PO 02/03/17 04:45 (Motrin) 600 mg Q6H PRN PO 02/03/17 04:45 02/05/17 05:56 (Percocet 5-325 Mg) 1 tab Q4H PRN PO 02/03/17 04:45 02/05/17 05:56 (Percocet 5-325 Mg) 2 tab Q4H PRN PO 02/03/17 04:45 (Becky-Colace) 2 tab Q12H PRN PO 02/03/17 04:45 02/04/17 15:47 (Ambien) 5 mg HS PRN PO 02/03/17 04:45 (Zofran Inj) 4 mg Q6H PRN IV PUSH 02/03/17 04:45 02/03/17 07:28 (Gogo Enciso MD R2) Assessment/Plan Problem List: (1) Twin, delivered by (2) (spontaneous vaginal delivery) Assessment and Plan 31 y/o female who is PPD/POD# 2 s/p CXN and of twin gestation. -Continue routine care. * Heating pad for back -Percocet and Motrin PRN pain. -Hgb trending down from 9.0 to 7.0. Repeat 02/06. * Patient denies consent of blood transfusion if necessary for druze purposes. Venofer 200mg IV given 02/04. Discharge home on ferrous sulfate PO TID. -Encouraged OOB. Advised pelvic rest for 6 wks. Will need rebeca removed on POD #3. Will need a f/u appt. in 1 wk for incision check. -Re: ctrl, she would like to consider her options. Discussed options between [facility] and [facility]. Undecided at this time -Anticipate discharge home tomorrow. wdw Dr. Aguiar (Gogo Enciso MD R2) Gogo Enciso MD R2 Feb 05, 2017 08:32 Alexx Aguiar MD Feb 05, 2017 09:25
--- NOTE | 2017-02-05 08:33 | HHI.DCPOC ---
Discharge Care Plan Diagnosis: (1) Twin, delivered by (2) (spontaneous vaginal delivery) Report Symptoms to Your Doctor -Temperature above 100.5 degrees -Redness, of incision or excessive or foul smelling drainage -Unusual pain or calf pain -Increased vaginal bleeding -Painful or difficulty urinating -Feelings of extreme sadness or anxiety after 2 weeks Goals to Promote Your Health * To prevent worsening of your condition and complications * To maintain your health at the optimal level Directions to Meet Your Goals Take your medications as prescribed Follow your dietary instruction Follow activity as directed Ensure plenty of rest for recovery Drink fluids for hydration Keep your appointments as scheduled Take your immunizations and boosters as scheduled If your symptoms worsen call your PCP, if no PCP go to Urgent Care Center or Emergency Room Smoking is Dangerous to Your Health. Avoid second hand smoke Call the 24-hour crisis hotline for domestic abuse at Gogo Enciso MD R2 Feb 05, 2017 08:33
[2017-02-05] MEDS ORDERED: FERR324T4 PO (08:35)
[2017-02-05] MEDS ORDERED: IBUP-232 PO (08:35)
[2017-02-05] MEDS ORDERED: SENN1TAB PO (08:35)
[2017-02-05] MEDS ORDERED: OXYC1TAB63 PO (08:35)
[2017-02-05] MEDS: DOCUSATE SODIUM 50 MG/SENNA 8.6 MG TAB PO PRN (14:40)
[2017-02-06] MEDS: IBUPROFEN 600 MG TAB PO PRN ×2 (04:28→10:43)
[2017-02-06] MEDS: oxyCODONE/ACETAMINOPHEN 5 MG/325 MG TAB PO PRN ×2 (04:28→10:44)
[2017-02-06] MEDS: DOCUSATE SODIUM 50 MG/SENNA 8.6 MG TAB PO PRN (04:28)
[2017-02-06 06:42] LABS: HEMATOCRIT 23.3 % (35.0-46.0); MEAN CELL VOLUME 76.5 FL (80.0-100.0); MEAN CORPUSCULAR HEMOGLOBIN 24.3 PG (27.0-34.0); MEAN CORPUSCULAR HGB CONC 31.8 % (32.0-36.0); PLATELET COUNT 193 TH/MM3 (150-450); RED BLOOD COUNT 3.04 MIL/MM3 (4.00-5.30); RED CELL DISTRIBUTION WIDTH 25.6 % (11.6-17.2)
--- NOTE | 2017-02-06 06:45 | HHI.OB ---
Subjective Remarks Postoperative/ day # 3. AFVSS overnight. Incision not draining. Decreased lochia. Denies dysuria. No breast tenderness. She is feeding the baby via breast/bottle. Appetite good. No nausea or vomiting. Positive flatus/ bowel movement. Ambulating well. Denies calf pain or shortness of breath. Objective Vitals/I&O Vital Signs Date Time Temp Pulse Resp B/P Pulse Ox O2 Delivery O2 Flow Rate FiO2 02/05/17 08:00 97.8 80 20 112/68 Result Diagram: 02/04/17 0618 Objective Remarks GENERAL: Well-nourished, well-developed patient. CARDIOVASCULAR: Regular rate and rhythm without murmurs, gallops, or rubs. RESPIRATORY: Breath sounds equal bilaterally. No accessory muscle use. ABDOMEN/GI: Abdomen soft, non-tender. Incision: Clean, dry and intact. Stables present Fundus: Firm, non-tender at umbilicus. GENITOURINARY: Light to moderate bleeding. EXTREMITIES: No cyanosis, non-tender, without signs of DVT. 1+ pitting edema up to mid brown bilaterally Medications and IVs Current Medications Medications (Trade) Dose Ordered Sig/Patrick Route Start Time Stop Time Status Last Admin (NS Flush) 2 ml BID IV FLUSH 02/03/17 09:00 (NS Flush) 2 ml UNSCH PRN IV FLUSH 02/03/17 04:45 (Mylicon Chew) 80 mg QID PRN PO 02/03/17 04:45 02/05/17 20:34 (Tylenol) 650 mg Q6H PRN PO 02/03/17 04:45 (Motrin) 600 mg Q6H PRN PO 02/03/17 04:45 02/06/17 04:28 (Percocet 5-325 Mg) 1 tab Q4H PRN PO 02/03/17 04:45 02/06/17 04:28 (Percocet 5-325 Mg) 2 tab Q4H PRN PO 02/03/17 04:45 (Becky-Colace) 2 tab Q12H PRN PO 02/03/17 04:45 02/06/17 04:28 (Ambien) 5 mg HS PRN PO 02/03/17 04:45 (Zofran Inj) 4 mg Q6H PRN IV PUSH 02/03/17 04:45 02/03/17 07:28 Assessment/Plan Problem List: (1) Twin, delivered by (2) (spontaneous vaginal delivery) Assessment and Plan 31 y/o female who is PPD/POD# 3 s/p CXN and of twin gestation. -Continue routine care. * Heating pad for back -Percocet and Motrin PRN pain. -Hgb trending down from 9.0 to 7.0. Repeat Hgb pending today. * Patient denies consent of blood transfusion if necessary for protestant purposes. Venofer 200mg IV given 02/04. Discharge home on ferrous sulfate PO TID. -Encouraged OOB. Advised pelvic rest for 6 wks. Will need rebeca removed today prior to discharge. Will need a f/u appt. in 1 wk for incision check. -Re: ctrl, she would like [facility]. -Anticipate discharge home today. Lucinda Whitfield Dr., MD R2 Feb 06, 2017 06:45
[2017-02-06 06:52] LABS: REVIEW FLAG FINAL
[2017-02-06 08:10] VITALS: BP 114/74; PULSE 71; RESP 18; TEMP 97.8
[2017-02-16] MEDS ORDERED: DICL250 PO (10:27)
== END 2017-02-06 19:07 | disposition home or self-care (01) | DRG 765 ==
LOC: H2EB 08:19 → H1EA 02-03 06:02
PROVIDERS: ADMIT Obstetrics & Gynecology Obstetrics; ATTEND Obstetrics & Gynecology Obstetrics
PROC: 10E0XZZ Delivery of Products of Conception, External Approach (ICD-10-PCS; principal; 2017-02-02)
PROC: 10D00Z1 Extraction of Products of Conception, Low, Open Approach (ICD-10-PCS; 2017-02-02)
DX: O30.033 Twin pregnancy, monochorionic/diamniotic, third trimester (principal); O36.5930 Maternal care for other known or suspected poor fetal growth, third trimester, not applicable or unspecified; Z37.2 Twins, both liveborn; O99.824 Streptococcus B carrier state complicating childbirth; O69.81X0 Labor and delivery complicated by cord around neck, without compression, not applicable or unspecified; Z3A.36 36 weeks gestation of pregnancy; O66.5 Attempted application of vacuum extractor and forceps; O32.8XX1 Maternal care for other malpresentation of fetus, fetus 1
CPT/HCPCS: 81001; 82805; 85007; 85025; 85027; 86900; 86901; 88307; J0131; J0690; J0780; J1756; J1885; J2274; J2405; J2540; J2590; J7120